=== PATIENT | female | born 2000 | race Caucasian/White ===

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

== ENCOUNTER 2019-08-02 07:51 | Inpatient (IN) ==
[2019-08-02] MEDS ORDERED: KETOROLAC 30 MG/ML VIAL IV STA (08:06)
[2019-08-02] MEDS ORDERED: ONDANSETRON INJ 2 MG/ML 2 ML VIAL IV STA (08:07)
[2019-08-02] MEDS ORDERED: SODIUM CHLORIDE 0.9% 1000ML 1,000 ML IV SCH (08:15)
[2019-08-02 08:43] LABS: Basophils # (auto) 0.04 K/uL (0-0.2); Basophils % (auto) 0.3 %; Eosinophils # (auto) 0.05 K/uL (0-0.5); Eosinophils % (auto) 0.4 %; Hematocrit (blood only) 37.4 % (37-47); Hemoglobin 12.6 g/dL (12.0-16.0); Immature Granulocytes # (auto) 0.03 K/uL (0.00-0.02); Immature Granulocytes % (auto) 0.2 %; Lymphocytes # (auto) 2.24 K/uL (1.2-3.4); Lymphocytes % (auto) 17.8 %; Mean Corpuscular Hemoglobin 28.8 pg (25-34); Mean Corpuscular Hgb Conc 33.7 g/dL (32-36); Mean Corpuscular Volume 85.6 fL (80-100); Mean Platelet Volume 10.2 fL (7.4-10.4); Monocytes # (auto) 1.74 K/uL (0.11-0.59); Monocytes % (auto) 13.8 %; Neutrophils # (auto) 8.48 K/uL (1.4-6.5); Neutrophils % (auto) 67.5 %; Platelet Count 328 K/uL (130-400); RDW Coefficient of Variation 13.7 % (11.5-14.5); RDW Standard Deviation 42.8 fL (36.4-46.3); Red Blood Count 4.37 M/uL (4.2-5.4); White Blood Count 12.58 K/uL (4.8-10.8)
[2019-08-02 09:00] LABS: Albumin Level 3.3 gm/dl (3.4-5.0); BUN Creatinine Ratio 10.1 (10-20); Calcium 8.9 mg/dl (8.5-10.1); Creatinine Clr Calc Pharmacy 93.4 ml/min; Est GFR (African American) 117.7; Est GFR (Non-African American) 101.5; Potassium 4.1 mmol/L (3.5-5.1)
[2019-08-02 09:01] LABS: Monotest Negative (Negative); Pregnancy Test, Serum Negative (Negative)
--- NOTE | 2019-08-02 09:01 | XRay Report ---
XR chest 1V portable HISTORY: 19 years-old Female Chest Pain acute atypical chest pain COMPARISON: None available TECHNIQUE: Portable AP view of the chest FINDINGS: Cardiomediastinal and hilar silhouettes are within normal limits. No pneumothorax, pleural effusion, focal airspace consolidation or overt pulmonary edema. Bones of the chest appear grossly intact. No o paque foreign body. IMPRESSION: Normal exam. ACT 112: Negative or not required by law. The above report was generated using voice recognition software. It may contain grammatical, syntax o r spelling errors. Electronically signed by: Pete Olmos M.D. 08/02/2019 9:00 AM
[2019-08-02 09:06] LABS: Influenza A virus by PCR Neg for Influ A (Neg); Influenza B virus by PCR Neg for Influ B (Neg)
[2019-08-02 09:07] LABS: Albumin Globulin Ratio 0.7 (0.9-2); Bilirubin,Total 0.1 mg/dl (0.2-1); Creatine Kinase MB 20.9 ng/ml (0.5-3.6); Globulin 4.5 gm/dl (2.5-4.0); Total Protein 7.8 gm/dl (6.4-8.2); Troponin I 4.71 ng/ml (0-0.045)
--- NOTE | 2019-08-02 09:25 | Emergency Department Note ---
ED Visit Note I saw and examined this patient separately from Dr. Gaines and discussed my findings with him. . Resident Activity Tracking Resident Involvement: Resident Care Provided Care Provided: Adult ED
--- NOTE | 2019-08-02 10:10 | History & Physical Report ---
Date of Service August 02, 2019 Assessment & Plan (1) Chest pain: - Likely related to myocarditis (see below) - CXR negative; CT PE pending completion. - Trop elevated at 4.710; will trend serial Trop levels q6hr. - Admit to telemetry for close monitoring. - Toradol 30 mg IV q6hr prn -- will aid in inflammatory related pain. (2) Myocarditis: - Presumed myocarditis in setting of recent viral illness at home. - CRP and ESR both elevated; will trend levels on 08/03/19. - EBV, Anaplasmosis and Lyme timer all pending. - U/a pending collection; BC pending. - Rapid strep & monospot negative. - Chest pain work up as noted above. - Toradol IV prn pain; Tylenol prn fevers/pain. - Consulting cardiology for evaluation. (3) Elevated troponin: - Trop 4.71; trend level q6hr. - Monitor daily EKGs. (4) Elevated CK: - CK level 237; IV fluids at 100 cc/hr. - Monitor daily levels. (5) Leukocytosis: - In setting of presumed recent viral illness. - Continue to monitor CBC daily. (6) Uses control: - Continue home med as prescribed. (7) DVT prophylaxis: - SCDs; encourage ambulation. Dispo: Med/surg with tele for chest pain evaluation. History of Present Illness Chief Complaint: Chest pain Primary Care Provider: Mulu Nicholson MD Ms. Lozano is a 19 year old female with no significant past medical history who presented with chest pain. Pt. developed generalized achiness, headaches and neck soreness starting last Thursday. She also had fevers at home but did not re cord temperature. She woke up with sternal chest pressure/pain this morning. Pain was constant and radiated to both arms. No improvement in pain with positional changes. Had associated nausea, denies vomiting, shortness of breath, abdominal pain, nasal congestion, pharyngitis, sinus pressure. She received Toradol 30 mg IV in the ER with improvement in chest pain. Denies recent ill contacts with known viral illnesses. ER course: Troponin level was elevated at 4.710. EKG was negative for acute changes. Leukocytosis, mildly elevated CK level, CRP of 10.8 and ESR 46 noted on labs. CXR negative. She received IV fluids and Toradol. Will admit for evaluation of myocarditis. Allergies Allergy/AdvReac Type Severity Reaction Status Date / Time No Known Allergies Allergy Unverified 08/02/19 08:43 Home Medications Home Medications Medication Instructions Recorded Confirmed Type norethindrone-e.estradiol-iron 1 tab PO HS 08/02/19 08/02/19 History [Travon Fe 1.5/ (28)] colchicine 0.6 mg PO DAILY #30 cap 08/04/19 Rx metoprolol succinate 25 mg PO DAILY #30 ea 08/04/19 Rx Past Med/Surg History Medical History No pertinent past medical history Surgical History S/P nasal surgery Family History Aunt Breast cancer paternal Aunt Breast cancer maternal - negative genetic testing Family/Other Breast cancer cousin Social History Preferred Language: Polish Communication Ability: Effective Manager Community Development Required: No Beliefs That Will Affect Care: None Current Living Situation: Parent current occupation: Student Feels Safe at Home: Yes Smoking Status: Never smoker Hx Alcohol Use: No Hx Substance Use: No Review of Systems Review of Systems: All systems reviewed & are unremarkable except as noted in HPI & below Constitutional: + fever, + fatigue and + weakness; no chills and no anorexia Ear, Nose, Mouth, Throat: no nasal congestion, no nasal discharge, no sinus pain/pressure and no sore throat Respiratory: no cough, no dyspnea and no dyspnea on exertion Cardiovascular: + chest pain and + radiating jaw, neck or arm pain; no palpitations and no edema Gastrointestinal: + nausea; no abdominal pain and no vomiting Musculoskeletal: + myalgia and + body aches; no back pain and no joint pain Integumentary: no non-healing lesions Physical Exam Physical Exam: General: Resting comfortably, 2 brothers present at bedside. HEENT: NC/AT; PERRLA with EOMI; [place] conjunctiva, MMM. No erythema of posterior pharynx Neck: Supple and nontender Cardiac: RRR w/o murmurs, gallops or rubs Lungs: CTA bilaterally; No rhonchi, wheezing, or rales Abdomen: Bowel normoactive X 4; Nontender to palpation Rectal: Deferred : Deferred Extremities: Warm. No edema present Neuro: No focal weakness Skin: No rash Results & Data Vital Signs (Past 12 Hours) Vital Signs Temp Pulse Resp BP Pulse Ox 08/02/19 08:30 73 20 104/66 100 08/02/19 07:54 36.5 C 79 18 114/80 100 Laboratory Results 08/02/19 08/02/19 08/02/19 Range/Units 08:20 08:06 08:06 WBC (4.8-10.8) K/uL RBC (4.2-5.4) M/uL Hgb (12.0-16.0) g/dL Hct (37-47) % MCV (80-100) fL MCH (25-34) pg MCHC (32-36) g/dL RDW Std Deviation (36.4-46.3) fL RDW Coeff of Mikey (11.5-14.5) % Plt Count (130-400) K/uL MPV (7.4-10.4) fL Immature Gran % (Auto) % Neut % (Auto) % Lymph % (Auto) % [place] % (Auto) % Eos % (Auto) % Baso % (Auto) % Immature Gran # (Auto) (0.00-0.02) K/uL Neut # (Auto) (1.4-6.5) K/uL Lymph # (Auto) (1.2-3.4) K/uL [place] # (Auto) (0.11-0.59) K/uL Eos # (Auto) (0-0.5) K/uL Baso # (Auto) (0-0.2) K/uL ESR 46 H (0-21) mm/hr Sodium (136-145) mmol/L Potassium (3.5-5.1) mmol/L Chloride (98-107) mmol/L Carbon Dioxide (21-32) mmol/L Anion Gap (3-11) BUN (7-18) mg/dl Creatinine (0.6-1.2) mg/dl Est Cr Clr Drug Dosing ml/min Est GFR ( Amer) Est GFR (Non-Af Amer) BUN/Creatinine Ratio (10-20) Glucose (70-99) mg/dl Calcium (8.5-10.1) mg/dl Total Bilirubin (0.2-1) mg/dl AST (15-37) U/L ALT (12-78) U/L Alkaline Phosphatase (45-117) U/L Total Creatine Kinase (26-192) U/L CK-MB (CK-2) (0.5-3.6) ng/ml CK/CKMB % Calc (0-3.0) Troponin I (0-0.045) ng/ml C-Reactive Protein 10.80 H (0-0.29) mg/dl Total Protein (6.4-8.2) gm/dl Albumin (3.4-5.0) gm/dl Globulin (2.5-4.0) gm/dl Albumin/Globulin Ratio (0.9-2) Lipase (73-393) U/L HCG, Qual (Negative) EBV Capsid Ag IgG Ab EBV Capsid Ag IgM Ab EBV EA Restrict+Diffuse EBV Nuclear Antigen Ab EBV Antibody Interp Monoscreen (Negative) Influenza Type A (PCR) Neg for Influ A (Neg) Influenza Type B (PCR) Neg for Influ B (Neg) 08/02/19 08/02/19 08/02/19 Range/Units 08:06 08:06 08:06 WBC (4.8-10.8) K/uL RBC (4.2-5.4) M/uL Hgb (12.0-16.0) g/dL Hct (37-47) % MCV (80-100) fL MCH (25-34) pg MCHC (32-36) g/dL RDW Std Deviation (36.4-46.3) fL RDW Coeff of Mikey (11.5-14.5) % Plt Count (130-400) K/uL MPV (7.4-10.4) fL Immature Gran % (Auto) % Neut % (Auto) % Lymph % (Auto) % [place] % (Auto) % Eos % (Auto) % Baso % (Auto) % Immature Gran # (Auto) (0.00-0.02) K/uL Neut # (Auto) (1.4-6.5) K/uL Lymph # (Auto) (1.2-3.4) K/uL [place] # (Auto) (0.11-0.59) K/uL Eos # (Auto) (0-0.5) K/uL Baso # (Auto) (0-0.2) K/uL ESR (0-21) mm/hr Sodium 137 (136-145) mmol/L Potassium 4.1 (3.5-5.1) mmol/L Chloride 106 (98-107) mmol/L Carbon Dioxide 25 (21-32) mmol/L Anion Gap 6.0 (3-11) BUN 8 (7-18) mg/dl Creatinine 0.83 (0.6-1.2) mg/dl Est Cr Clr Drug Dosing 93.4 ml/min Est GFR ( Amer) 117.7 Est GFR (Non-Af Amer) 101.5 BUN/Creatinine Ratio 10.1 (10-20) Glucose 102 H (70-99) mg/dl Calcium 8.9 (8.5-10.1) mg/dl Total Bilirubin 0.1 L (0.2-1) mg/dl AST 29 (15-37) U/L ALT 20 (12-78) U/L Alkaline Phosphatase 73 (45-117) U/L Total Creatine Kinase 237 H (26-192) U/L CK-MB (CK-2) 20.9 H (0.5-3.6) ng/ml CK/CKMB % Calc 8.8 H (0-3.0) Troponin I 4.710 H* (0-0.045) ng/ml C-Reactive Protein (0-0.29) mg/dl Total Protein 7.8 (6.4-8.2) gm/dl Albumin 3.3 L (3.4-5.0) gm/dl Globulin 4.5 H (2.5-4.0) gm/dl Albumin/Globulin Ratio 0.7 L (0.9-2) Lipase 96 (73-393) U/L HCG, Qual Negative (Negative) EBV Capsid Ag IgG Ab Pending EBV Capsid Ag IgM Ab Pending EBV EA Restrict+Diffuse Pending EBV Nuclear Antigen Ab Pending EBV Antibody Interp Pending Monoscreen Negative (Negative) Influenza Type A (PCR) (Neg) Influenza Type B (PCR) (Neg) 08/02/19 Range/Units 08:06 WBC 12.58 H (4.8-10.8) K/uL RBC 4.37 (4.2-5.4) M/uL Hgb 12.6 (12.0-16.0) g/dL Hct 37.4 (37-47) % MCV 85.6 (80-100) fL MCH 28.8 (25-34) pg MCHC 33.7 (32-36) g/dL RDW Std Deviation 42.8 (36.4-46.3) fL RDW Coeff of Mikey 13.7 (11.5-14.5) % Plt Count 328 (130-400) K/uL MPV 10.2 (7.4-10.4) fL Immature Gran % (Auto) 0.2 % Neut % (Auto) 67.5 % Lymph % (Auto) 17.8 % [place] % (Auto) 13.8 % Eos % (Auto) 0.4 % Baso % (Auto) 0.3 % Immature Gran # (Auto) 0.03 H (0.00-0.02) K/uL Neut # (Auto) 8.48 H (1.4-6.5) K/uL Lymph # (Auto) 2.24 (1.2-3.4) K/uL [place] # (Auto) 1.74 H (0.11-0.59) K/uL Eos # (Auto) 0.05 (0-0.5) K/uL Baso # (Auto) 0.04 (0-0.2) K/uL ESR (0-21) mm/hr Sodium (136-145) mmol/L Potassium (3.5-5.1) mmol/L Chloride (98-107) mmol/L Carbon Dioxide (21-32) mmol/L Anion Gap (3-11) BUN (7-18) mg/dl Creatinine (0.6-1.2) mg/dl Est Cr Clr Drug Dosing ml/min Est GFR ( Amer) Est GFR (Non-Af Amer) BUN/Creatinine Ratio (10-20) Glucose (70-99) mg/dl Calcium (8.5-10.1) mg/dl Total Bilirubin (0.2-1) mg/dl AST (15-37) U/L ALT (12-78) U/L Alkaline Phosphatase (45-117) U/L Total Creatine Kinase (26-192) U/L CK-MB (CK-2) (0.5-3.6) ng/ml CK/CKMB % Calc (0-3.0) Troponin I (0-0.045) ng/ml C-Reactive Protein (0-0.29) mg/dl Total Protein (6.4-8.2) gm/dl Albumin (3.4-5.0) gm/dl Globulin (2.5-4.0) gm/dl Albumin/Globulin Ratio (0.9-2) Lipase (73-393) U/L HCG, Qual (Negative) EBV Capsid Ag IgG Ab EBV Capsid Ag IgM Ab EBV EA Restrict+Diffuse EBV Nuclear Antigen Ab EBV Antibody Interp Monoscreen (Negative) Influenza Type A (PCR) (Neg) Influenza Type B (PCR) (Neg) Code Status & VTE Plan Code Status FULL CODE VTE Prophylaxis Plan VTE Prophylaxis will be ordered: Yes Supervising Physician Co-Signing Physician Notes During my face to face encounter with the patient, I obtained a physical exa mination and history. I reviwed above note and discussed plan with APC, Monika Lawson. Patient will be admitted with myocarditis as she has fever, chest pain, and elevated troponin. Will be admitted and monitored for arrhythmia. Will discuss case with cardiology. PG Care Time/CCT Total # of Minutes Spent Total Time Spent with Patient: Total time spent is greater than 50% in coordination of care (as documented) at patient's floor/unit and/or counseling patient: Coding Level of Care Code 78441 OBS Care - Level 3 Diagnoses Chest pain R07.9 Myocarditis I51.4 Elevated troponin R79.89 Elevated CK R74.8 Leukocytosis D72.829 Uses control Z78.9 DVT prophylaxis Z29.9
[2019-08-02] MEDS ORDERED: OPTIRAY 320 125ml IV PRN (10:12)
--- NOTE | 2019-08-02 10:32 | CT Scan Report ---
CT ANGIOGRAPHY OF THE CHEST, PULMONARY EMBOLUS PROTOCOL CLINICAL HISTORY: Chest pain and fever. Evaluate for pulmonary embolus. COMPARISON STUDY: Chest radiograph August 02, 2019. TECHNIQUE: Following IV administration of 119 mL of Optiray-320, helical axial images of the chest we re obtained utilizing the pulmonary embolus protocol. Maximal intensity projections and sagittal and coronal reformats were viewed on an independent 3D workstation. IV contrast was administered withou t complication. Automated exposure control was utilized for the study. A dose lowering technique wa s utilized adhering to the principles of ALARA. CT DOSE: 218.69 mGy.cm FINDINGS: No pulmonary emboli are identified. There is no thoracic aortic dissection. The size of th e heart is normal. There is no pericardial effusion. No enlarged axillary, mediastinal or hilar lymph nodes are present. The central airways are patent. There is no consolidation to suggest pneumonia. A 4 mm right upper lobe nodule with central calcification is likely benign. Bony thorax is unremarkabl e. Upper abdomen is unremarkable. IMPRESSION: 1. No pulmonary emboli identified. 2. No acute findings within the chest. 3. 4 mm right upper lobe nodule with central calcification. This is likely benign. A chest CT in one year to ensure stability is recommended. ACT 112: Negative or not required by law. Electronically signed by: Simeon Jama M.D. 08/02/2019 10:30 AM
[2019-08-02] MEDS ORDERED: ACETAMINOPHEN 325 MG TAB PO PRN (12:24)
[2019-08-02] MEDS ORDERED: ONDANSETRON INJ 2 MG/ML 2 ML VIAL IV PRN (12:24)
[2019-08-02] MEDS ORDERED: KETOROLAC 30 MG/ML VIAL IV PRN (12:24)
[2019-08-02] MEDS: SODIUM CHLORIDE 0.9% 1000ML 1,000 ML IV SCH ×2 (13:15→23:45)
--- NOTE | 2019-08-02 14:41 | Emergency Department Note ---
Entered by Pebbles Merrill acting as a scribe for Dallas Gaines MD History of Present Illness General Chief complaint: Fever Stated complaint: CHEST PAIN,FEVER Time Seen by Provider: 08/02/19 07:57 Source: patient History of Present Illness Onset (ago): hour(s) 2 Location: chest Radiation: non-radiation Pain Consistency: + other (persistent) Maximum Pain Intensity: 3 Quality: + other (pressure) Relieved By: + medication (Advil) Associated symptoms: + chest pain, + headaches and + other (neck pain, body ache); no nausea/vomiting Treatments prior to arrival: other (Advil) The patient is a 19 year old female presenting to the Emergency Department complaining of persistent chest pain starting 2 hours ago. The patient reports that she began to experienced non-radiating chest pain this morning. She describes this pain as a pressure. The reports that she has neck pain that started about 4 days ago. She states that her neck seems like it is swollen. She explains that she has been experiencing body aches. She notes that she has been experiencing intermittent headaches that worsen when she stands up to fast or moves her head from side to side. She adds that she took Advil SERVICE OFFICER at 0430 that improved her neck pain and headache. The patient reports that she hasnt received a flu shot this season. She states that she finished her menstrual period 1 week ago. She notes that she has no pertinent past medical history aside from a nose surgery. The patient denies nausea, vomiting and history of mononucleosis. Home Medications Home Medications Medication Instructions Recorded Confirmed Type ibuprofen [Advil] 200 mg PO Q6H PRN 08/02/19 08/02/19 History norethindrone-e.estradiol-iron 1 tab PO HS 08/02/19 08/02/19 History [Travon Fe 1.5/30 (28)] Allergies Allergy/AdvReac Type Severity Reaction Status Date / Time No Known Allergies Allergy Unverified 08/02/19 08:43 Past Med/Surg History Medical History No pertinent past medical history Surgical History S/P nasal surgery Family History Aunt Breast cancer paternal Aunt Breast cancer maternal - negative genetic testing Family/Other Breast cancer cousin Social History Preferred Language: Singaporean Communication Ability: Effective Asbestos Worker Helper Required: No Beliefs That Will Affect Care: None Current Living Situation: Parent current occupation: Student Other Information That Helps Us Care for You: No Feels Safe at Home: Yes Safety Concerns: Feels Safe At This Time Smoking Status: Never smoker Hx Alcohol Use: No Hx Substance Use: No Review of Systems See HPI for pertinent positives & negatives. and A total of 10 systems reviewed and were otherwise negative Physical Exam Vital Signs Vital Signs - 24 hr 08/03/19 12:34 Temperature 36.7 C Temperature Source Oral Pulse Rate [Left Finger] 53 L Respiratory Rate 18 Blood Pressure [Left Arm] 123/80 Blood Pressure Mean [Left Arm] 94 Pulse Oximetry 99 Oxygen Delivery Method Room Air GENERAL: Awake, alert, well-appearing, in no acute distress HENT: Normocephalic, atraumatic. Oropharynx unremarkable. EYES: Normal conjunctiva. Sclera non-icteric. NECK: Supple. No nuchal rigidity. FROM. No JVD. RESPIRATORY: Clear to auscultation. CARDIAC: Regular rate, normal rhythm. Extremities warm and well perfused. Pulses equal. ABDOMEN: Soft, non-distended. No tenderness to palpation. No rebound or guarding. No masses. RECTAL: Deferred. MUSCULOSKELETAL: Chest examination reveals no tenderness. The back is symmetrical on inspection without obvious abnormality. There is no CVA tenderness to palpation. No joint edema. LOWER EXTREMITIES: Calves are equal size bilaterally and non-tender. No edema. No discoloration. NEURO: Normal sensorium. No sensory or motor deficits noted. SKIN: No rash or jaundice noted. Course Course 0758: The patient was evaluated in room B10, and a complete history and physical examination were performed. 09: I discussed the patients case with Dr. Dannielle ANDERSON waterside worker. He agrees with the plan to consult the hospitalist team. 920: I discussed the patients case with Dr. Kristen ANDERSON hospitalist. He will evaluate the patient for further management. 0930: I updated the patient at this time. Administered Medications Colchicine (Colcrys) 0.6 mg PO BID FEROZ Stop: 09/02/19 08:59 Last Admin: 08/03/19 20:26 Dose: 0.6 mg Documented by: [id number] Admin: 08/03/19 09:38 Dose: 0.6 mg Documented by: [id number] Ioversol (Optiray 320 125ml) 119 ml IV ONCE PRN PRN Reason: Interaction Checking Stop: 08/06/19 10:11 Last Admin: 08/02/19 10:13 Dose: 119 ml Documented by: [id number] Ketorolac Tromethamine (Toradol) 30 mg IV Q6H PRN PRN Reason: Pain Stop: 08/07/19 12:23 Last Admin: 08/02/19 16:13 Dose: 30 mg Documented by: [id number] Metoprolol Tartrate (Lopressor) 12.5 mg PO BID FEROZ Stop: 09/01/19 20:59 Last Admin: 08/03/19 20:25 Dose: 12.5 mg Documented by: [id number] Admin: 08/03/19 08:16 Dose: 12.5 mg Documented by: [id number] Admin: 08/02/19 20:34 Dose: 12.5 mg Documented by: [id number] Miscellaneous (Patient's Own Oral Contraceptive) 1 ea PO HS FEROZ Stop: 09/01/19 20:59 Last Admin: 08/03/19 20:25 Dose: 1 ea Documented by: [id number] Admin: 08/02/19 22:22 Dose: Not Given Documented by: [id number] Discontinued Medications Colchicine (Colcrys) 0.6 mg PO NOW STA Stop: 08/02/19 17:50 Last Admin: 08/02/19 20:34 Dose: 0.6 mg Documented by: [id number] Sodium Chloride (Nss 1000ml) 1,000 mls @ 999 mls/hr IV .Q1H1M FEROZ Stop: 08/02/19 09:15 Last Infusion: 08/02/19 09:59 Dose: 0 mls/hr Documented by: [id number] Admin: 08/02/19 08:28 Dose: 999 mls/hr Documented by: [id number] Sodium Chloride (Nss 1000ml) 1,000 mls @ 100 mls/hr IV .Q10H FEROZ Stop: 08/03/19 09:14 Last Infusion: 08/03/19 09:45 Dose: 0 mls/hr Documented by: [id number] Admin: 08/02/19 23:45 Dose: 100 mls/hr Documented by: [id number] Infusion: 08/02/19 23:15 Dose: 100 mls/hr Documented by: [id number] Admin: 08/02/19 13:15 Dose: 100 mls/hr Documented by: [id number] Ketorolac Tromethamine (Toradol) 30 mg IV NOW STA Stop: 08/02/19 08:07 Last Admin: 08/02/19 08:29 Dose: 30 mg Documented by: [id number] Miscellaneous (Order Awaiting Action) 1 ea N/A QS FEROZ Stop: 09/01/19 15:59 Last Admin: 08/02/19 16:13 Dose: Not Given Documented by: [id number] Ondansetron HCl (Zofran) 4 mg IV NOW STA Stop: 08/02/19 08:08 Last Admin: 08/02/19 08:29 Dose: 4 mg Documented by: [id number] Medical Decision Making Differential Diagnosis Differential diagnosis: Etiologies such as viral syndrome, otitis, pharyngitis, pneumonia, influenza, meningitis, urinary tract infection, sepsis, bacteremia, as well as others were entertained. Medical Records Attestation: I reviewed the patient's medical records. Home Medications Current Medication List: was personally reviewed by me Laboratory Data Attestation: I reviewed the patient's lab results. Result diagrams: 08/03/19 01:46 08/03/19 01:46 Lab Results 08/02/19 08/02/19 08/02/19 Range/Units 08:06 08:06 08:06 WBC 12.58 H (4.8-10.8) K/uL RBC 4.37 (4.2-5.4) M/uL Hgb 12.6 (12.0-16.0) g/dL Hct 37.4 (37-47) % MCV 85.6 (80-100) fL MCH 28.8 (25-34) pg MCHC 33.7 (32-36) g/dL RDW Std Deviation 42.8 (36.4-46.3) fL RDW Coeff of Mikey 13.7 (11.5-14.5) % Plt Count 328 (130-400) K/uL MPV 10.2 (7.4-10.4) fL Immature Gran % (Auto) 0.2 % Neut % (Auto) 67.5 % Lymph % (Auto) 17.8 % Logan % (Auto) 13.8 % Eos % (Auto) 0.4 % Baso % (Auto) 0.3 % Immature Gran # (Auto) 0.03 H (0.00-0.02) K/uL Neut # (Auto) 8.48 H (1.4-6.5) K/uL Lymph # (Auto) 2.24 (1.2-3.4) K/uL Logan # (Auto) 1.74 H (0.11-0.59) K/uL Eos # (Auto) 0.05 (0-0.5) K/uL Baso # (Auto) 0.04 (0-0.2) K/uL ESR (0-21) mm/hr Sodium 137 (136-145) mmol/L Potassium 4.1 (3.5-5.1) mmol/L Chloride 106 (98-107) mmol/L Carbon Dioxide 25 (21-32) mmol/L Anion Gap 6.0 (3-11) BUN 8 (7-18) mg/dl Creatinine 0.83 (0.6-1.2) mg/dl Est Cr Clr Drug Dosing 93.4 ml/min Est GFR ( Amer) 117.7 Est GFR (Non-Af Amer) 101.5 BUN/Creatinine Ratio 10.1 (10-20) Glucose 102 H (70-99) mg/dl Calcium 8.9 (8.5-10.1) mg/dl Total Bilirubin 0.1 L (0.2-1) mg/dl AST 29 (15-37) U/L ALT 20 (12-78) U/L Alkaline Phosphatase 73 (45-117) U/L Total Creatine Kinase 237 H (26-192) U/L CK-MB (CK-2) 20.9 H (0.5-3.6) ng/ml CK/CKMB % Calc 8.8 H (0-3.0) Troponin I 4.710 H* (0-0.045) ng/ml C-Reactive Protein (0-0.29) mg/dl Total Protein 7.8 (6.4-8.2) gm/dl Albumin 3.3 L (3.4-5.0) gm/dl Globulin 4.5 H (2.5-4.0) gm/dl Albumin/Globulin Ratio 0.7 L (0.9-2) Lipase 96 (73-393) U/L HCG, Qual Negative (Negative) Urine Color Urine Appearance (Clear) Urine pH (4.5-7.5) Ur Specific Prospect (1.000-1.030) Urine Protein (Negative) Urine Glucose (UA) (Negative) Urine Ketones (Negative) Urine Blood (Negative) Urine Nitrite (Negative) Urine Bilirubin (Negative) Urine Urobilinogen (Negative) Ur Leukocyte Esterase (Negative) Lyme Disease IgG Ab (Negative) Lyme Disease IgM Ab (Negative) EBV Capsid Ag IgG Ab U/mL EBV Capsid Ag IgM Ab U/mL EBV EA Restrict+Diffuse U/mL EBV Nuclear Antigen Ab U/mL EBV Antibody Interp Monoscreen Negative (Negative) Influenza Type A (PCR) (Neg) Influenza Type B (PCR) (Neg) 08/02/19 08/02/19 08/02/19 Range/Units 08:06 08:06 08:06 WBC (4.8-10.8) K/uL RBC (4.2-5.4) M/uL Hgb (12.0-16.0) g/dL Hct (37-47) % MCV (80-100) fL MCH (25-34) pg MCHC (32-36) g/dL RDW Std Deviation (36.4-46.3) fL RDW Coeff of Mikey (11.5-14.5) % Plt Count (130-400) K/uL MPV (7.4-10.4) fL Immature Gran % (Auto) % Neut % (Auto) % Lymph % (Auto) % Logan % (Auto) % Eos % (Auto) % Baso % (Auto) % Immature Gran # (Auto) (0.00-0.02) K/uL Neut # (Auto) (1.4-6.5) K/uL Lymph # (Auto) (1.2-3.4) K/uL Logan # (Auto) (0.11-0.59) K/uL Eos # (Auto) (0-0.5) K/uL Baso # (Auto) (0-0.2) K/uL ESR 46 H (0-21) mm/hr Sodium (136-145) mmol/L Potassium (3.5-5.1) mmol/L Chloride (98-107) mmol/L Carbon Dioxide (21-32) mmol/L Anion Gap (3-11) BUN (7-18) mg/dl Creatinine (0.6-1.2) mg/dl Est Cr Clr Drug Dosing ml/min Est GFR ( Amer) Est GFR (Non-Af Amer) BUN/Creatinine Ratio (10-20) Glucose (70-99) mg/dl Calcium (8.5-10.1) mg/dl Total Bilirubin (0.2-1) mg/dl AST (15-37) U/L ALT (12-78) U/L Alkaline Phosphatase (45-117) U/L Total Creatine Kinase (26-192) U/L CK-MB (CK-2) (0.5-3.6) ng/ml CK/CKMB % Calc (0-3.0) Troponin I (0-0.045) ng/ml C-Reactive Protein 10.80 H (0-0.29) mg/dl Total Protein (6.4-8.2) gm/dl Albumin (3.4-5.0) gm/dl Globulin (2.5-4.0) gm/dl Albumin/Globulin Ratio (0.9-2) Lipase (73-393) U/L HCG, Qual (Negative) Urine Color Urine Appearance (Clear) Urine pH (4.5-7.5) Ur Specific Prospect (1.000-1.030) Urine Protein (Negative) Urine Glucose (UA) (Negative) Urine Ketones (Negative) Urine Blood (Negative) Urine Nitrite (Negative) Urine Bilirubin (Negative) Urine Urobilinogen (Negative) Ur Leukocyte Esterase (Negative) Lyme Disease IgG Ab (Negative) Lyme Disease IgM Ab (Negative) EBV Capsid Ag IgG Ab 401.00 H U/mL EBV Capsid Ag IgM Ab <36.00 U/mL EBV EA Restrict+Diffuse 17.30 H U/mL EBV Nuclear Antigen Ab 540.00 H U/mL EBV Antibody Interp SEE NOTE Monoscreen (Negative) Influenza Type A (PCR) (Neg) Influenza Type B (PCR) (Neg) 01/28/20 01/28/20 01/28/20 Range/Units 08:20 13:44 13:44 WBC (4.8-10.8) K/uL RBC (4.2-5.4) M/uL Hgb (12.0-16.0) g/dL Hct (37-47) % MCV (80-100) fL MCH (25-34) pg MCHC (32-36) g/dL RDW Std Deviation (36.4-46.3) fL RDW Coeff of Mikey (11.5-14.5) % Plt Count (130-400) K/uL MPV (7.4-10.4) fL Immature Gran % (Auto) % Neut % (Auto) % Lymph % (Auto) % Logan % (Auto) % Eos % (Auto) % Baso % (Auto) % Immature Gran # (Auto) (0.00-0.02) K/uL Neut # (Auto) (1.4-6.5) K/uL Lymph # (Auto) (1.2-3.4) K/uL Logan # (Auto) (0.11-0.59) K/uL Eos # (Auto) (0-0.5) K/uL Baso # (Auto) (0-0.2) K/uL ESR (0-21) mm/hr Sodium (136-145) mmol/L Potassium (3.5-5.1) mmol/L Chloride (98-107) mmol/L Carbon Dioxide (21-32) mmol/L Anion Gap (3-11) BUN (7-18) mg/dl Creatinine (0.6-1.2) mg/dl Est Cr Clr Drug Dosing ml/min Est GFR ( Amer) Est GFR (Non-Af Amer) BUN/Creatinine Ratio (10-20) Glucose (70-99) mg/dl Calcium (8.5-10.1) mg/dl Total Bilirubin (0.2-1) mg/dl AST (15-37) U/L ALT (12-78) U/L Alkaline Phosphatase (45-117) U/L Total Creatine Kinase (26-192) U/L CK-MB (CK-2) (0.5-3.6) ng/ml CK/CKMB % Calc (0-3.0) Troponin I 6.640 H* (0-0.045) ng/ml C-Reactive Protein (0-0.29) mg/dl Total Protein (6.4-8.2) gm/dl Albumin (3.4-5.0) gm/dl Globulin (2.5-4.0) gm/dl Albumin/Globulin Ratio (0.9-2) Lipase (73-393) U/L HCG, Qual (Negative) Urine Color Urine Appearance (Clear) Urine pH (4.5-7.5) Ur Specific Prospect (1.000-1.030) Urine Protein (Negative) Urine Glucose (UA) (Negative) Urine Ketones (Negative) Urine Blood (Negative) Urine Nitrite (Negative) Urine Bilirubin (Negative) Urine Urobilinogen (Negative) Ur Leukocyte Esterase (Negative) Lyme Disease IgG Ab Negative (Negative) Lyme Disease IgM Ab Negative (Negative) EBV Capsid Ag IgG Ab U/mL EBV Capsid Ag IgM Ab U/mL EBV EA Restrict+Diffuse U/mL EBV Nuclear Antigen Ab U/mL EBV Antibody Interp Monoscreen (Negative) Influenza Type A (PCR) Neg for Influ A (Neg) Influenza Type B (PCR) Neg for Influ B (Neg) 08/02/19 08/02/19 08/03/19 Range/Units 16:50 19:39 01:46 WBC (4.8-10.8) K/uL RBC (4.2-5.4) M/uL Hgb (12.0-16.0) g/dL Hct (37-47) % MCV (80-100) fL MCH (25-34) pg MCHC (32-36) g/dL RDW Std Deviation (36.4-46.3) fL RDW Coeff of Mikey (11.5-14.5) % Plt Count (130-400) K/uL MPV (7.4-10.4) fL Immature Gran % (Auto) % Neut % (Auto) % Lymph % (Auto) % Logan % (Auto) % Eos % (Auto) % Baso % (Auto) % Immature Gran # (Auto) (0.00-0.02) K/uL Neut # (Auto) (1.4-6.5) K/uL Lymph # (Auto) (1.2-3.4) K/uL Logan # (Auto) (0.11-0.59) K/uL Eos # (Auto) (0-0.5) K/uL Baso # (Auto) (0-0.2) K/uL ESR (0-21) mm/hr Sodium 140 (136-145) mmol/L Potassium 4.7 (3.5-5.1) mmol/L Chloride 112 H (98-107) mmol/L Carbon Dioxide 26 (21-32) mmol/L Anion Gap 2.0 L (3-11) BUN 9 (7-18) mg/dl Creatinine 0.85 (0.6-1.2) mg/dl Est Cr Clr Drug Dosing 91.2 ml/min Est GFR ( Amer) 114.3 Est GFR (Non-Af Amer) 98.6 BUN/Creatinine Ratio 10.4 (10-20) Glucose 88 (70-99) mg/dl Calcium 8.2 L (8.5-10.1) mg/dl Total Bilirubin (0.2-1) mg/dl AST (15-37) U/L ALT (12-78) U/L Alkaline Phosphatase (45-117) U/L Total Creatine Kinase 546 H (26-192) U/L CK-MB (CK-2) (0.5-3.6) ng/ml CK/CKMB % Calc (0-3.0) Troponin I 12.200 H* 11.300 H* (0-0.045) ng/ml C-Reactive Protein 6.46 H (0-0.29) mg/dl Total Protein (6.4-8.2) gm/dl Albumin (3.4-5.0) gm/dl Globulin (2.5-4.0) gm/dl Albumin/Globulin Ratio (0.9-2) Lipase (73-393) U/L HCG, Qual (Negative) Urine Color Yellow Urine Appearance Clear (Clear) Urine pH 8.0 H (4.5-7.5) Ur Specific Prospect 1.044 H (1.000-1.030) Urine Protein Negative (Negative) Urine Glucose (UA) Negative (Negative) Urine Ketones Negative (Negative) Urine Blood Negative (Negative) Urine Nitrite Negative (Negative) Urine Bilirubin Negative (Negative) Urine Urobilinogen Negative (Negative) Ur Leukocyte Esterase Negative (Negative) Lyme Disease IgG Ab (Negative) Lyme Disease IgM Ab (Negative) EBV Capsid Ag IgG Ab U/mL EBV Capsid Ag IgM Ab U/mL EBV EA Restrict+Diffuse U/mL EBV Nuclear Antigen Ab U/mL EBV Antibody Interp Monoscreen (Negative) Influenza Type A (PCR) (Neg) Influenza Type B (PCR) (Neg) 08/03/19 08/03/19 Range/Units 01:46 01:46 WBC 9.90 (4.8-10.8) K/uL RBC 3.75 L (4.2-5.4) M/uL Hgb 10.8 L (12.0-16.0) g/dL Hct 32.8 L (37-47) % MCV 87.5 (80-100) fL MCH 28.8 (25-34) pg MCHC 32.9 (32-36) g/dL RDW Std Deviation 44.2 (36.4-46.3) fL RDW Coeff of Mikey 13.7 (11.5-14.5) % Plt Count 316 (130-400) K/uL MPV 9.8 (7.4-10.4) fL Immature Gran % (Auto) % Neut % (Auto) % Lymph % (Auto) % Logan % (Auto) % Eos % (Auto) % Baso % (Auto) % Immature Gran # (Auto) (0.00-0.02) K/uL Neut # (Auto) (1.4-6.5) K/uL Lymph # (Auto) (1.2-3.4) K/uL Logan # (Auto) (0.11-0.59) K/uL Eos # (Auto) (0-0.5) K/uL Baso # (Auto) (0-0.2) K/uL ESR 42 H (0-21) mm/hr Sodium (136-145) mmol/L Potassium (3.5-5.1) mmol/L Chloride (98-107) mmol/L Carbon Dioxide (21-32) mmol/L Anion Gap (3-11) BUN (7-18) mg/dl Creatinine (0.6-1.2) mg/dl Est Cr Clr Drug Dosing ml/min Est GFR ( Amer) Est GFR (Non-Af Amer) BUN/Creatinine Ratio (10-20) Glucose (70-99) mg/dl Calcium (8.5-10.1) mg/dl Total Bilirubin (0.2-1) mg/dl AST (15-37) U/L ALT (12-78) U/L Alkaline Phosphatase (45-117) U/L Total Creatine Kinase (26-192) U/L CK-MB (CK-2) (0.5-3.6) ng/ml CK/CKMB % Calc (0-3.0) Troponin I (0-0.045) ng/ml C-Reactive Protein (0-0.29) mg/dl Total Protein (6.4-8.2) gm/dl Albumin (3.4-5.0) gm/dl Globulin (2.5-4.0) gm/dl Albumin/Globulin Ratio (0.9-2) Lipase (73-393) U/L HCG, Qual (Negative) Urine Color Urine Appearance (Clear) Urine pH (4.5-7.5) Ur Specific Prospect (1.000-1.030) Urine Protein (Negative) Urine Glucose (UA) (Negative) Urine Ketones (Negative) Urine Blood (Negative) Urine Nitrite (Negative) Urine Bilirubin (Negative) Urine Urobilinogen (Negative) Ur Leukocyte Esterase (Negative) Lyme Disease IgG Ab (Negative) Lyme Disease IgM Ab (Negative) EBV Capsid Ag IgG Ab U/mL EBV Capsid Ag IgM Ab U/mL EBV EA Restrict+Diffuse U/mL EBV Nuclear Antigen Ab U/mL EBV Antibody Interp Monoscreen (Negative) Influenza Type A (PCR) (Neg) Influenza Type B (PCR) (Neg) Imaging Data Radiologist's Impression: Radiology results as stated below per my review and the radiologist's interpretation: CT ANGIOGRAPHY OF THE CHEST, PULMONARY EMBOLUS PROTOCOL CLINICAL HISTORY: Chest pain and fever. Evaluate for pulmonary embolus. COMPARISON STUDY: Chest radiograph August 02, 2019. TECHNIQUE: Following IV administration of 119 mL of Optiray-320, helical axial images of the chest were obtained utilizing the pulmonary embolus protocol. Maximal intensity projections and sagittal and coronal reformats were viewed on an independent 3D workstation. IV contrast was administered without complication. Automated exposure control was utilized for the study. A dose lowering technique was utilized adhering to the principles of ALARA. CT DOSE: 218.69 mGy.cm FINDINGS: No pulmonary emboli are identified. There is no thoracic aortic dissection. The size of the heart is normal. There is no pericardial effusion. No enlarged axillary, mediastinal or hilar lymph nodes are present. The central airways are patent. There is no consolidation to suggest pneumonia. A 4 mm right upper lobe nodule with central calcification is likely benign. Bony thorax is unremarkable. Upper abdomen is unremarkable. IMPRESSION: 1. No pulmonary emboli identified. 2. No acute findings within the chest. 3. 4 mm right upper lobe nodule with central calcification. This is likely benign. A chest CT in one year to ensure stability is recommended. ACT 112: Negative or not required by law. Electronically signed by: Simeon Jama M.D. 08/02/2019 10:30 AM XR chest 1V portable HISTORY: 19 years-old Female Chest Pain acute atypical chest pain COMPARISON: None available TECHNIQUE: Portable AP view of the chest FINDINGS: Cardiomediastinal and hilar silhouettes are within normal limits. No pneumothorax, pleural effusion, focal airspace consolidation or overt pulmonary edema. Bones of the chest appear grossly intact. No opaque foreign body. IMPRESSION: Normal exam. ACT 112: Negative or not required by law. The above report was generated using voice recognition software. It may contain grammatical, syntax or spelling errors. Electronically signed by: Pete Olmos M.D. 08/02/2019 9:00 AM ECG Data Attestation: I personally reviewed and interpreted this ECG as follows: Indication: + chest pain Rate (beats per minute): 74 Rhythm: + normal sinus ECG Intervals/blocks: + Normal QT-c (QT-c 406.) ECG ST segments: no ST depression and no ST elevation ECG Findings: no PACs and no PVCs Blood Pressure Blood Pressure Findings: Normal blood pressure Blood Pressure Disposition: further management by hospitalist RACHAEL Narrative This is a 19-year-old female who presents emergency department complaining of chest pain. The patient has been sick for the past week or so with upper respiratory-like symptoms. Using shared medical decision making with the patient decision was made to obtain EKG as well as cardiac enzymes and a chest x-ray. I did attempt to contact this patient's parents without success. They are down in [place]. Patient's laboratory work is concerning for an elevated troponin. Based on this I did discuss the case with cardiology. We both decided to have the patient admitted to the medicine service as well as to have the patient sent for CAT scan of the chest. Patient was in agreement with the treatment plan. Patient was given Toradol for her pain. Repeat examination revealed improvement the patient's symptoms. Impression & Plan Chest pain, Elevated troponin Discharge Plan Visit Data *Final* Discharge Date/Time: 08/02/19 11:53 Chief Complaint: Fever Stated Complaint: CHEST PAIN,FEVER ED Provider: Dallas Gaines ED Midlevel Provider: Vangie Irene Discharge Problem: Chest pain, Elevated troponin Patient Disposition: Admitted As Inpatient Discharge Instructions Interventions: ED Discharge Assessment Last Done: 08/02/19 11:53 Discharge Problem: Chest pain Qualifiers: Chest pain type: unspecified Qualified Code(s): R07.9 - Chest pain, unspecified The scribe's documentation has been prepared under my direction and personally reviewed by me in its entirety. I confirm that the note above accurately reflects all work, treatment, procedures, and medical decision making performed by me.
[2019-08-02 15:02] LABS: Lyme Ab IgG w/WB Rflx Negative (Negative); Lyme Ab IgM w/WB Rflx Negative (Negative)
--- NOTE | 2019-08-02 16:23 | XCELERA ---
[id number] \\[email or web address]\[id number]
[2019-08-02 17:00] LABS: Appearance Urine Clear (Clear); Bilirubin Urine Negative (Negative); Blood Urine Negative (Negative); Color Urine Yellow; Glucose Urine UA Negative (Negative); Ketones Urine Negative (Negative); Leukocyte Esterase Urine Negative (Negative); Nitrite Urine Negative (Negative); Protein Urine Negative (Negative); Specific Gravity Urine 1.044 (1.000-1.030); Urobilinogen Urine Negative (Negative)
--- NOTE | 2019-08-02 17:47 | Cardiology Consultation ---
Date of Consultation August 02, 2019 Assessment & Plan (1) Myopericarditis: Her symptoms are consistent with a pericarditis based primarily on the acute onset of the symptoms and associated pleuritic findings. She does not have EKG findings of active or acute pericarditis. Her biomarkers are elevated suggesting myocardial involvement. There is also wall motion abnormality on her echocardiogram. He the time of the interview she had been symptom free. I think the likelihood that her biomarker elevation was related to an acute coronary syndrome, dissection or embolic event is exceedingly low. I do not believe she requires coronary angiography as result. There is some concern regarding continued use of nonsteroidals in the setting of myocardial involvement. I think she will need to be monitored closely overnight for the development of a arrhythmias. No evidence of heart failure. No dilation of the ventricle. I think we will try and limit the use of nonsteroidals. She can be treated with colchicine and given her regional wall motion abnormalities will try low-dose beta-blockade as well. She will require an activity restriction when discharged. History of Present Illness Reason for Consultation: Chest pain Requesting Physician: Kristen Attending Physician: Cristofer Peterson History of Present Illness The patient is a 19-year-old woman without any significant cardiac history who developed the relatively acute onset of chest discomfort early this morning. Patient states she was awakened from sleep with symptoms of nausea and some gastrointestinal upset. This eventually led to symptoms of chest pressure. This chest pressure was precordial in nature and also involve both arms. There was no other radiation. Did not produce significant breathing difficulty. There may been a mild pleuritic component and perhaps improvement in symptoms with sitting upright. Based on the nature of the symptoms she sought medical attention was noted to have elevated cardiac biomarkers upon presentation to the emergency room. She was administered Toradol with relief of her symptoms. Patient states that for several days she has been experiencing fevers and chills. The seem to have resolved yesterday but then she began experience these new symptoms. She had some neck fullness in stiffness in her neck as well. This did produce a sense of dizziness when turning from side to side but no symptoms of significant palpitations, presyncope or syncope. No significant coughing. No orthopnea. She cannot recall any close contacts with similar symptoms. Throughout most of the afternoon the patient was symptom free. She has not had a recurrence of her chest pain until shortly prior to this interview where she began experience some mild discomfort. She was just administered another dose of Toradol. Allergies Allergy/AdvReac Type Severity Reaction Status Date / Time No Known Allergies Allergy Unverified 08/02/19 08:43 Home Medications Home Medications Medication Instructions Recorded Confirmed Type ibuprofen [Advil] 200 mg PO Q6H PRN 08/02/19 08/02/19 History norethindrone-e.estradiol-iron 1 tab PO HS 08/02/19 08/02/19 History [Travon Fe 1.5/30 ()] Patient History Medical History No pertinent past medical history Surgical History S/P nasal surgery Family History Aunt Breast cancer paternal Aunt Breast cancer maternal - negative genetic testing Family/Other Breast cancer cousin Social History Preferred Language: Greenlandic Communication Ability: Effective Ciaio Lumite Injector Required: No Beliefs That Will Affect Care: None Current Living Situation: Parent current occupation: Student Other Information That Helps Us Care for You: No Feels Safe at Home: Yes Safety Concerns: Feels Safe At This Time Smoking Status: Never smoker Hx Alcohol Use: No Hx Substance Use: No Review of Systems Review of Systems: All systems reviewed & are unremarkable except as noted in HPI & below Physical Exam Physical Exam: She is alert and oriented x3. Mood affect appear normal. She answered all questions appropriately. HEENT: Sclerae are anicteric. Pupils are equal and reactive to light and accommodation. Extraocular movements were intact. Neuro: Cranial nerves intact Neck: Examination of the submandibular region did not reveal any significant lymphadenopathy. Carotids are palpable bilaterally and free of bruits on auscultation. There was no evidence of jugular venous distention. The thyroid was not enlarged. Lungs: Lungs are clear to auscultation bilaterally. There are no rales wheezes or rhonchi. She has normal respiratory effort without use of accessory muscles. There is normal pulmonary excursion. Cardiac: The rhythm was regular. S1 and S2 were normal. There are no murmurs on examination. The PMI was not markedly displaced on palpation. Abdomen: The abdomen was soft and nontender. Extremities: Patient has bilateral radial pulses that are equal in intensity. There is no evidence cyanosis or clubbing. There was no evidence of significant peripheral edema bilaterally. Skin: There are no rashes noted on examination today. Results & Data Vital Signs (Past 12 Hours) Vital Signs Temp Pulse Pulse Resp BP BP Pulse Ox 08/02/19 15:32 36.7 C 72 18 126/84 100 08/02/19 12:29 36.8 C 77 18 104/63 97 08/02/19 11:41 82 20 107/68 98 08/02/19 09:58 78 20 104/74 100 08/02/19 09:00 78 16 103/70 100 08/02/19 08:30 73 20 104/66 100 08/02/19 07:54 36.5 C 79 18 114/80 100 Laboratory Results Abnormal Lab Results 08/02/19 08/02/19 08/02/19 08:06 08:06 08:06 WBC 12.58 H RBC 4.37 Hgb 12.6 Hct 37.4 MCV 85.6 MCH 28.8 MCHC 33.7 RDW Std Deviation 42.8 RDW Coeff of Mikey 13.7 Plt Count 328 MPV 10.2 Immature Gran % (Auto) 0.2 Neut % (Auto) 67.5 Lymph % (Auto) 17.8 Anderson % (Auto) 13.8 Eos % (Auto) 0.4 Baso % (Auto) 0.3 Immature Gran # (Auto) 0.03 H Neut # (Auto) 8.48 H Lymph # (Auto) 2.24 Anderson # (Auto) 1.74 H Eos # (Auto) 0.05 Baso # (Auto) 0.04 ESR Sodium 137 Potassium 4.1 Chloride 106 Carbon Dioxide 25 Anion Gap 6.0 BUN 8 Creatinine 0.83 Est Cr Clr Drug Dosing 93.4 Est GFR ( Amer) 117.7 Est GFR (Non-Af Amer) 101.5 BUN/Creatinine Ratio 10.1 Glucose 102 H Calcium 8.9 Total Bilirubin 0.1 L AST 29 ALT 20 Alkaline Phosphatase 73 Total Creatine Kinase 237 H CK-MB (CK-2) 20.9 H CK/CKMB % Calc 8.8 H Troponin I 4.710 H* C-Reactive Protein Total Protein 7.8 Albumin 3.3 L Globulin 4.5 H Albumin/Globulin Ratio 0.7 L Lipase 96 HCG, Qual Negative Urine Color Urine Appearance Urine pH Ur Specific Mel[place]ude Urine Protein Urine Glucose (UA) Urine Ketones Urine Blood Urine Nitrite Urine Bilirubin Urine Urobilinogen Ur Leukocyte Esterase Lyme Disease IgG Ab Lyme Disease IgM Ab Monoscreen Negative Influenza Type A (PCR) Influenza Type B (PCR) 08/02/19 08/02/19 08/02/19 08:06 08:06 08:20 WBC RBC Hgb Hct MCV MCH MCHC RDW Std Deviation RDW Coeff of Mikey Plt Count MPV Immature Gran % (Auto) Neut % (Auto) Lymph % (Auto) Anderson % (Auto) Eos % (Auto) Baso % (Auto) Immature Gran # (Auto) Neut # (Auto) Lymph # (Auto) Anderson # (Auto) Eos # (Auto) Baso # (Auto) ESR 46 H Sodium Potassium Chloride Carbon Dioxide Anion Gap BUN Creatinine Est Cr Clr Drug Dosing Est GFR ( Amer) Est GFR (Non-Af Amer) BUN/Creatinine Ratio Glucose Calcium Total Bilirubin AST ALT Alkaline Phosphatase Total Creatine Kinase CK-MB (CK-2) CK/CKMB % Calc Troponin I C-Reactive Protein 10.80 H Total Protein Albumin Globulin Albumin/Globulin Ratio Lipase HCG, Qual Urine Color Urine Appearance Urine pH Ur Specific Melrude Urine Protein Urine Glucose (UA) Urine Ketones Urine Blood Urine Nitrite Urine Bilirubin Urine Urobilinogen Ur Leukocyte Esterase Lyme Disease IgG Ab Lyme Disease IgM Ab Monoscreen Influenza Type A (PCR) Neg for Influ A Influenza Type B (PCR) Neg for Influ B 08/02/19 08/02/19 08/02/19 13:44 13:44 16:50 WBC RBC Hgb Hct MCV MCH MCHC RDW Std Deviation RDW Coeff of Mikey Plt Count MPV Immature Gran % (Auto) Neut % (Auto) Lymph % (Auto) Anderson % (Auto) Eos % (Auto) Baso % (Auto) Immature Gran # (Auto) Neut # (Auto) Lymph # (Auto) Anderson # (Auto) Eos # (Auto) Baso # (Auto) ESR Sodium Potassium Chloride Carbon Dioxide Anion Gap BUN Creatinine Est Cr Clr Drug Dosing Est GFR ( Amer) Est GFR (Non-Af Amer) BUN/Creatinine Ratio Glucose Calcium Total Bilirubin AST ALT Alkaline Phosphatase Total Creatine Kinase CK-MB (CK-2) CK/CKMB % Calc Troponin I 6.640 H* C-Reactive Protein Total Protein Albumin Globulin Albumin/Globulin Ratio Lipase HCG, Qual Urine Color Yellow Urine Appearance Clear Urine pH 8.0 H Ur Specific Melr[place] 1.044 H Urine Protein Negative Urine Glucose (UA) Negative Urine Ketones Negative Urine Blood Negative Urine Nitrite Negative Urine Bilirubin Negative Urine Urobilinogen Negative Ur Leukocyte Esterase Negative Lyme Disease IgG Ab Negative Lyme Disease IgM Ab Negative Monoscreen Influenza Type A (PCR) Influenza Type B (PCR) Diagnostic Findings Echocardiogram demonstrated preserved LV systolic function with regional wall motion abnormalities involving portions of the apex. No significant valvular heart disease. Chest CT did not reveal any evidence acute cardiopulmonary disease. No evidence of pulmonary embolus. There was an isolated calcified nodule estimated 4 millimeters. ECG Additional Comments: EKG was normal PG Care Time/CCT Total # of Minutes Spent Total Time Spent with Patient: Total time spent is greater than 50% in coordination of care (as documented) at patient's floor/unit and/or counseling patient: Coding Level of Care Code 91778 Office/OBS Consult Lvl 4 Diagnoses Myopericarditis I31.9
[2019-08-02] MEDS ORDERED: COLCHICINE 0.6 MG TAB PO STA (17:49)
[2019-08-02] MEDS: METOPROLOL TARTRATE 25 MG TAB PO SCH (20:34)
[2019-08-02] MEDS: PATIENT'S OWN ORAL CONTRACEPTIVE PO SCH (22:22)
[2019-08-03 02:06] LABS: Hematocrit (blood only) 32.8 % (37-47); Hemoglobin 10.8 g/dL (12.0-16.0); Mean Corpuscular Hemoglobin 28.8 pg (25-34); Mean Corpuscular Hgb Conc 32.9 g/dL (32-36); Mean Corpuscular Volume 87.5 fL (80-100); Mean Platelet Volume 9.8 fL (7.4-10.4); Platelet Count 316 K/uL (130-400); RDW Coefficient of Variation 13.7 % (11.5-14.5); RDW Standard Deviation 44.2 fL (36.4-46.3); Red Blood Count 3.75 M/uL (4.2-5.4)
[2019-08-03 02:26] LABS: BUN Creatinine Ratio 10.4 (10-20); Calcium 8.2 mg/dl (8.5-10.1); Creatinine Clr Calc Pharmacy 91.2 ml/min; Est GFR (African American) 114.3; Est GFR (Non-African American) 98.6; Potassium 4.7 mmol/L (3.5-5.1)
[2019-08-03 02:34] LABS: C Reactive Protein 6.46 mg/dl (0-0.29); Troponin I 11.3 ng/ml (0-0.045)
[2019-08-03] MEDS: METOPROLOL TARTRATE 25 MG TAB PO SCH ×2 (08:16→20:25)
[2019-08-03] MEDS: COLCHICINE 0.6 MG TAB PO SCH ×2 (09:38→20:26)
--- NOTE | 2019-08-03 10:35 | Cardiology Progress Note ---
Date of Service August 03, 2019 Assessment & Plan (1) Myopericarditis: Patient's symptoms have resolved. Her biomarkers did trend upwards but are now trending downward. The peak troponin: Size well with the onset of her symptoms. She was started on colchicine, low-dose nonsteroidal medication and low-dose beta-elias. She appears to be tolerating medical therapy well. Hemodynamics appear to be stable. She did have some very brief rhythm disturbance overnight on telemetry. I think the biggest risk is the development of rhythm issues. I would recommend continuing telemetry for at least another 24 hours. Subjective Summary the patient claims feeling well. She has not had any recurrence of her presenting symptoms. No chest pain. No breathing difficulty. No pleuritic symptoms. She has been ambulatory to the bathroom without dyspnea or dizziness. No sense of palpitation. Review of Systems Review of Systems: Per HPI Physical Exam Physical Exam: She is alert and oriented x3. Mood affect appear normal. She answered all questions appropriately. HEENT: Sclerae are anicteric. Pupils are equal and reactive to light and accommodation. Extraocular movements were intact. Neuro: Cranial nerves intact Neck: Examination of the submandibular region did not reveal any significant lymphadenopathy. Carotids are palpable bilaterally and free of bruits on auscultation. There was no evidence of jugular venous distention. The thyroid was not enlarged. Lungs: Lungs are clear to auscultation bilaterally. There are no rales wheezes or rhonchi. She has normal respiratory effort without use of accessory muscles. There is normal pulmonary excursion. Cardiac: The rhythm was regular. S1 and S2 were normal. There are no murmurs on examination. The PMI was not markedly displaced on palpation. Abdomen: The abdomen was soft and nontender. Extremities: Patient has bilateral radial pulses that are equal in intensity. There is no evidence cyanosis or clubbing. There was no evidence of significant peripheral edema bilaterally. Skin: There are no rashes noted on examination today. Results & Data Vital Signs (Past 12 Hours) Vital Signs Temp Pulse Pulse Resp BP Pulse Ox 08/03/19 07:40 36.8 C 73 20 112/70 98 08/03/19 07:29 65 08/03/19 03:36 36.7 C 71 18 110/70 99 08/03/19 00:00 61 08/02/19 23:24 36.8 C 63 18 104/72 98 Laboratory Results Abnormal Lab Results 08/02/19 08/02/19 08/02/19 13:44 13:44 16:50 WBC RBC Hgb Hct MCV MCH MCHC RDW Std Deviation RDW Coeff of Mikey Plt Count MPV ESR Sodium Potassium Chloride Carbon Dioxide Anion Gap BUN Creatinine Est Cr Clr Drug Dosing Est GFR ( Amer) Est GFR (Non-Af Amer) BUN/Creatinine Ratio Glucose Calcium Total Creatine Kinase Troponin I 6.640 H* C-Reactive Protein Urine Color Yellow Urine Appearance Clear Urine pH 8.0 H Ur Specific Lavinia 1.044 H Urine Protein Negative Urine Glucose (UA) Negative Urine Ketones Negative Urine Blood Negative Urine Nitrite Negative Urine Bilirubin Negative Urine Urobilinogen Negative Ur Leukocyte Esterase Negative Lyme Disease IgG Ab Negative Lyme Disease IgM Ab Negative 08/02/19 08/03/19 08/03/19 19:39 01:46 01:46 WBC 9.90 RBC 3.75 L Hgb 10.8 L Hct 32.8 L MCV 87.5 MCH 28.8 MCHC 32.9 RDW Std Deviation 44.2 RDW Coeff of Mikey 13.7 Plt Count 316 MPV 9.8 ESR Sodium 140 Potassium 4.7 Chloride 112 H Carbon Dioxide 26 Anion Gap 2.0 L BUN 9 Creatinine 0.85 Est Cr Clr Drug Dosing 91.2 Est GFR ( Amer) 114.3 Est GFR (Non-Af Amer) 98.6 BUN/Creatinine Ratio 10.4 Glucose 88 Calcium 8.2 L Total Creatine Kinase 546 H Troponin I 12.200 H* 11.300 H* C-Reactive Protein 6.46 H Urine Color Urine Appearance Urine pH Ur Specific Lavinia Urine Protein Urine Glucose (UA) Urine Ketones Urine Blood Urine Nitrite Urine Bilirubin Urine Urobilinogen Ur Leukocyte Esterase Lyme Disease IgG Ab Lyme Disease IgM Ab 08/03/19 01:46 WBC RBC Hgb Hct MCV MCH MCHC RDW Std Deviation RDW Coeff of Mikey Plt Count MPV ESR 42 H Sodium Potassium Chloride Carbon Dioxide Anion Gap BUN Creatinine Est Cr Clr Drug Dosing Est GFR ( Amer) Est GFR (Non-Af Amer) BUN/Creatinine Ratio Glucose Calcium Total Creatine Kinase Troponin I C-Reactive Protein Urine Color Urine Appearance Urine pH Ur Specific Lavinia Urine Protein Urine Glucose (UA) Urine Ketones Urine Blood Urine Nitrite Urine Bilirubin Urine Urobilinogen Ur Leukocyte Esterase Lyme Disease IgG Ab Lyme Disease IgM Ab ECG Additional Comments: Monitor revealed occasional PVCs. One run of wide complex tachycardia lasting a few beats. EKG this morning demonstrated normal sinus rhythm without significant ST or T-wave changes. PG Care Time/CCT Total # of Minutes Spent Total Time Spent with Patient: Total time spent is greater than 50% in coordination of care (as documented) at patient's floor/unit and/or counseling patient: Coding Level of Care Code 45750 Subseq Obs Care Lvl 3 Diagnoses Myopericarditis I31.9
--- NOTE | 2019-08-03 11:49 | XCELERA ---
[id number] \\[id number]
--- NOTE | 2019-08-03 14:31 | Hospitalist Progress Note ---
Date of Service August 03, 2019 Assessment & Plan (1) Chest pain: - Likely related to myopericarditis (see below) - CXR negative; CT PE was negative. - Trop peaked at 12.2, now trending down. - Continue to monitor on telemetry, did have 9 beat run of V. tach overnight. - Toradol 30 mg IV q6hr prn; also started Colchicine 0.6 mg BID and Metoprolol tartrate 12.5 mg BID. (2) Myocarditis: - Presumed myopericarditis in setting of recent viral illness at home. - CRP and ESR mildly improved on repeat labs. - Lyme titer negative; Anaplasmosis pending. - U/a negative; blood cultures negative (prelim) - Rapid strep & monospot negative. EBV titer suggests previous infection. - Chest pain work up as noted above. - Consulted cardiology, appreciate input. Will monitor on telemetry over next 24 hours. - Colchicine 0.6 mg BID & Metoprolol 12.5 mg BID. (3) Elevated troponin: - Trop level peaked at 12, now trending down. (4) Abnormal echocardiogram: - Echo with regional wall motion abnormalities. No evidence of PFO. - On Metoprolol 12.5 mg BID. - Cardiology following, appreciate input. (5) Elevated CK: - CK level elevated; received IV fluid hydration. (6) Leukocytosis: - In setting of presumed recent viral illness. - Monitor CBC daily. (7) Pulmonary nodule: - CT chest with 4 mm RUL nodule. - Recommend f/u chest CT in 1 year. (8) Uses control: - Continue home med as prescribed. (9) DVT prophylaxis: - SCDs; encourage ambulation. Dispo: Med/surg with tele; discharge likely on pending office worker over next 24 hours. Subjective Pt. is doing well -- chest pain is now resolved. Last episode was after arrival to the floor yesterday afternoon. Denies SOB, N/V. Plan to monitor over next 24 hours on monitor per cardiology. Review of Systems Review of Systems: All systems reviewed & are unremarkable except as noted in HPI & below Constitutional: no fever, no chills, no fatigue, no weakness and no anorexia Respiratory: no cough, no dyspnea, no dyspnea on exertion and no wheezing Cardiovascular: no chest pain, no radiating jaw, neck or arm pain, no palpitations and no edema Gastrointestinal: no abdominal pain, no nausea, no vomiting and no constipation Genitourinary: no difficulty urinating Musculoskeletal: no back pain and no joint pain Integumentary: no non-healing lesions Physical Exam Physical Exam: General: Resting comfortably HEENT: NC/AT; PERRLA with EOMI; [place] conjunctiva, MMM. No erythema of posterior pharynx Neck: Supple and nontender Cardiac: RRR Lungs: CTA bilaterally Abdomen: Bowel normoactive X 4; Nontender to palpation Extremities: Warm. No edema present Neuro: No focal weakness Skin: No rash Results & Data Vital Signs (Past 12 Hours) Vital Signs Temp Pulse Pulse Resp BP Pulse Ox 08/03/19 12:34 36.7 C 53 L 18 123/80 99 08/03/19 07:40 36.8 C 73 20 112/70 98 08/03/19 07:29 65 08/03/19 03:36 36.7 C 71 18 110/70 99 Laboratory Results 08/03/19 08/03/19 08/03/19 Range/Units 01:46 01:46 01:46 WBC 9.90 (4.8-10.8) K/uL RBC 3.75 L (4.2-5.4) M/uL Hgb 10.8 L (12.0-16.0) g/dL Hct 32.8 L (37-47) % MCV 87.5 (80-100) fL MCH 28.8 (25-34) pg MCHC 32.9 (32-36) g/dL RDW Std Deviation 44.2 (36.4-46.3) fL RDW Coeff of Mikey 13.7 (11.5-14.5) % Plt Count 316 (130-400) K/uL MPV 9.8 (7.4-10.4) fL ESR 42 H (0-21) mm/hr Sodium 140 (136-145) mmol/L Potassium 4.7 (3.5-5.1) mmol/L Chloride 112 H (98-107) mmol/L Carbon Dioxide 26 (21-32) mmol/L Anion Gap 2.0 L (3-11) BUN 9 (7-18) mg/dl Creatinine 0.85 (0.6-1.2) mg/dl Est Cr Clr Drug Dosing 91.2 ml/min Est GFR ( Amer) 114.3 Est GFR (Non-Af Amer) 98.6 BUN/Creatinine Ratio 10.4 (10-20) Glucose 88 (70-99) mg/dl Calcium 8.2 L (8.5-10.1) mg/dl Total Creatine Kinase 546 H (26-192) U/L Troponin I 11.300 H* (0-0.045) ng/ml C-Reactive Protein 6.46 H (0-0.29) mg/dl Urine Color Urine Appearance (Clear) Urine pH (4.5-7.5) Ur Specific Warren (1.000-1.030) Urine Protein (Negative) Urine Glucose (UA) (Negative) Urine Ketones (Negative) Urine Blood (Negative) Urine Nitrite (Negative) Urine Bilirubin (Negative) Urine Urobilinogen (Negative) Ur Leukocyte Esterase (Negative) Lyme Disease IgG Ab (Negative) Lyme Disease IgM Ab (Negative) EBV Capsid Ag IgG Ab U/mL EBV Capsid Ag IgM Ab U/mL EBV EA Restrict+Diffuse U/mL EBV Nuclear Antigen Ab U/mL EBV Antibody Interp 08/02/19 08/02/19 08/02/19 Range/Units 19:39 16:50 13:44 WBC (4.8-10.8) K/uL RBC (4.2-5.4) M/uL Hgb (12.0-16.0) g/dL Hct (37-47) % MCV (80-100) fL MCH (25-34) pg MCHC (32-36) g/dL RDW Std Deviation (36.4-46.3) fL RDW Coeff of Mikey (11.5-14.5) % Plt Count (130-400) K/uL MPV (7.4-10.4) fL ESR (0-21) mm/hr Sodium (136-145) mmol/L Potassium (3.5-5.1) mmol/L Chloride (98-107) mmol/L Carbon Dioxide (21-32) mmol/L Anion Gap (3-11) BUN (7-18) mg/dl Creatinine (0.6-1.2) mg/dl Est Cr Clr Drug Dosing ml/min Est GFR ( Amer) Est GFR (Non-Af Amer) BUN/Creatinine Ratio (10-20) Glucose (70-99) mg/dl Calcium (8.5-10.1) mg/dl Total Creatine Kinase (26-192) U/L Troponin I 12.200 H* (0-0.045) ng/ml C-Reactive Protein (0-0.29) mg/dl Urine Color Yellow Urine Appearance Clear (Clear) Urine pH 8.0 H (4.5-7.5) Ur Specific Warren 1.044 H (1.000-1.030) Urine Protein Negative (Negative) Urine Glucose (UA) Negative (Negative) Urine Ketones Negative (Negative) Urine Blood Negative (Negative) Urine Nitrite Negative (Negative) Urine Bilirubin Negative (Negative) Urine Urobilinogen Negative (Negative) Ur Leukocyte Esterase Negative (Negative) Lyme Disease IgG Ab Negative (Negative) Lyme Disease IgM Ab Negative (Negative) EBV Capsid Ag IgG Ab U/mL EBV Capsid Ag IgM Ab U/mL EBV EA Restrict+Diffuse U/mL EBV Nuclear Antigen Ab U/mL EBV Antibody Interp 08/02/19 08/02/19 Range/Units 13:44 08:06 WBC (4.8-10.8) K/uL RBC (4.2-5.4) M/uL Hgb (12.0-16.0) g/dL Hct (37-47) % MCV (80-100) fL MCH (25-34) pg MCHC (32-36) g/dL RDW Std Deviation (36.4-46.3) fL RDW Coeff of Mikey (11.5-14.5) % Plt Count (130-400) K/uL MPV (7.4-10.4) fL ESR (0-21) mm/hr Sodium (136-145) mmol/L Potassium (3.5-5.1) mmol/L Chloride (98-107) mmol/L Carbon Dioxide (21-32) mmol/L Anion Gap (3-11) BUN (7-18) mg/dl Creatinine (0.6-1.2) mg/dl Est Cr Clr Drug Dosing ml/min Est GFR ( Amer) Est GFR (Non-Af Amer) BUN/Creatinine Ratio (-20) Glucose (70-99) mg/dl Calcium (8.5-10.1) mg/dl Total Creatine Kinase (26-192) U/L Troponin I 6.640 H* (0-0.045) ng/ml C-Reactive Protein (0-0.29) mg/dl Urine Color Urine Appearance (Clear) Urine pH (4.5-7.5) Ur Specific Warren (1.000-1.030) Urine Protein (Negative) Urine Glucose (UA) (Negative) Urine Ketones (Negative) Urine Blood (Negative) Urine Nitrite (Negative) Urine Bilirubin (Negative) Urine Urobilinogen (Negative) Ur Leukocyte Esterase (Negative) Lyme Disease IgG Ab (Negative) Lyme Disease IgM Ab (Negative) EBV Capsid Ag IgG Ab 401.00 H U/mL EBV Capsid Ag IgM Ab <36.00 U/mL EBV EA Restrict+Diffuse 17.30 H U/mL EBV Nuclear Antigen Ab 540.00 H U/mL EBV Antibody Interp SEE NOTE PG Care Time/CCT Total # of Minutes Spent Total Time Spent with Patient: Total time spent is greater than 50% in coordination of care (as documented) at patient's floor/unit and/or counseling patient: Coding Level of Care Code 03059 Subseq Hosp Care Lvl 3 Diagnoses Chest pain R07.9 Myocarditis I51.4 Elevated troponin R79.89 Abnormal echocardiogram R93.1 Elevated CK R74.8 Leukocytosis D72.829 Pulmonary nodule R91.1 Uses control Z78.9 DVT prophylaxis Z29.9
--- NOTE | 2019-08-03 17:30 | Electrocardiogram Report ---
Test Reason : Blood Pressure : / mmHG Vent. Rate : 074 BPM Atrial Rate : 074 BPM P-R Int : 148 ms QRS Dur : 068 ms QT Int : 366 ms P-R-T Axes : 040 058 032 degrees QTc Int : 406 ms Normal sinus rhythm with sinus arrhythmia Low voltage QRS Borderline ECG No previous ECGs available Confirmed by Fritz Bee ([id number]) on 08/03/2019 5:30:34 PM Referred By: REFERRED SELF Confirmed By:Rafael Bee
--- NOTE | 2019-08-03 17:51 | Electrocardiogram Report ---
Test Reason : Blood Pressure : / mmHG Vent. Rate : 076 BPM Atrial Rate : 076 BPM P-R Int : 148 ms QRS Dur : 068 ms QT Int : 362 ms P-R-T Axes : 048 046 045 degrees QTc Int : 407 ms Normal sinus rhythm with sinus arrhythmia Nonspecific ST and T wave abnormality Abnormal ECG When compared with ECG of 02-AUG-2019 08:14, (unconfirmed) Nonspecific T wave abnormality, worse in Inferior leads Nonspecific T wave abnormality now evident in Lateral leads Confirmed by Fritz Bee ([id number] on 08/03/2019 5:50:41 PM Referred By: REFERRED SELF Confirmed By:Rafael Bee
[2019-08-03] MEDS: PATIENT'S OWN ORAL CONTRACEPTIVE PO SCH (20:25)
[2019-08-04] MEDS: COLCHICINE 0.6 MG TAB PO SCH (08:40)
[2019-08-04] MEDS: METOPROLOL TARTRATE 25 MG TAB PO SCH (08:40)
--- NOTE | 2019-08-04 13:31 | Discharge Summary ---
Date of Service August 04, 2019 Admission HPI Per Admitting Provider Ms. Lozano is a 19 year old female with no significant past medical history who presented with chest pain. Pt. developed generalized achiness, headaches and neck soreness starting last Thursday. She also had fevers at home but did not record temperature. She woke up with sternal chest pressure/pain this morning. Pain was constant and radiated to both arms. No improvement in pain with positional changes. Had associated nausea, denies vomiting, shortness of breath, abdominal pain, nasal congestion, pharyngitis, sinus pressure. She received Toradol 30 mg IV in the ER with improvement in chest pain. Denies recent ill contacts with known viral illnesses. ER course: Troponin level was elevated at 4.710. EKG was negative for acute changes. Leukocytosis, mildly elevated CK level, CRP of 10.8 and ESR 46 noted on labs. CXR negative. She received IV fluids and Toradol. Will admit for evaluation of myocarditis. Admission Exam Per Admitting Provider General: Resting comfortably, 2 brothers present at bedside. HEENT: NC/AT; PERRLA with EOMI; [place] conjunctiva, MMM. No erythema of posterior pharynx Neck: Supple and nontender Cardiac: RRR w/o murmurs, gallops or rubs Lungs: CTA bilaterally; No rhonchi, wheezing, or rales Abdomen: Bowel normoactive X 4; Nontender to palpation Rectal: Deferred : Deferred Extremities: Warm. No edema present Neuro: No focal weakness Skin: No rash Principal Diagnosis Myopericarditis Discharge Exam General: Resting comfortably HEENT: NC/AT; PERRLA with EOMI; [place] conjunctiva, MMM. No erythema of posterior pharynx Neck: Supple and nontender Cardiac: RRR Lungs: CTA bilaterally Abdomen: Bowel normoactive X 4; Nontender to palpation Extremities: Warm. No edema present Neuro: No focal weakness Skin: No rash Discharge Data Allergies Allergy/AdvReac Type Severity Reaction Status Date / Time No Known Allergies Allergy Unverified 08/02/19 08:43 Consultations 08/02/19 09:16 Consult Cardiology Stat 08/02/19 09:21 ED Decision to Admit Stat Ordered Studies 08/02/19 09:18 CT angio chest PE protocol Stat Hospital Course (1) Chest pain: Likely related to myopericarditis (see below) CXR negative; CT PE was negative. Trop peaked at 12.2, trended down. Monitor on telemetry, SR over last 24 hours. Colchicine 0.6 mg BID and Metoprolol tartrate 12.5 mg BID. Transitioned to colchicine 0.6 mg daily and Toprol XL 25 mg daily at discharge. (2) Myocarditis: Presumed myopericarditis in setting of recent viral illness at home. CRP and ESR elevated. Lyme titer negative; Anaplasmosis pending. U/a negative; blood cultures negative (prelim) Rapid strep & monospot negative. EBV titer suggests previous infection. Consulted cardiology, appreciate input. On Colchicine and Metoprolol. (3) Elevated troponin: Trop level peaked at 12, trended down. (4) Abnormal echocardiogram: Echo with regional wall motion abnormalities. No evidence of PFO. On Metoprolol 12.5 mg BID. Transition to Toprol XL 25 mg daily at discharge. Cardiology following, appreciate input. (5) Elevated CK: CK level elevated; received IV fluid hydration. (6) Leukocytosis: In setting of presumed recent viral illness. (7) Pulmonary nodule: CT chest with 4 mm RUL nodule. Recommend f/u chest CT in 1 year. (8) Uses control: Continued home med as prescribed. (9) DVT prophylaxis: SCDs; encouraged ambulation. Discharged to home on 08/04/19. Total Time Total Time Spent Total Time Spent (In Minutes): >30 minutes Total Time Includes: Examination of the Patient, Discharge Planning, Medication Reconciliation, Communication With Other Providers and Other Discharge Plan Discharge Items Patient Disposition: Home - Self-Care Reason For Visit: CHEST PAIN Discharge Diagnosis: Pericarditis Condition on Discharge: Fair Goals: You have been hospitalized for an acute medical problem. During your stay at [facility], we have made an effort to correct the problem that brought you to the hospital while keeping you as comfortable as possible. Medications were used to bring your condition under control and your discharge instructions will include directions for any medications you should take after leaving the hospital. Please make sure you see your Primary Care Provider as part of your follow up plan. Activity: As commented below Exercise/Sports: None Non-emergency contact: Primary Care Provider and Field Marketing Representative Call non-emergency contact if: you have any medication questions, your symptoms worsen, your pain is not controlled, your pain is worsening, your pain is unusual for you, your pain is concerning for you and you have a fever Follow-up/Referrals: Mulu Nicholson MD [Primary Care Provider] - 08/09/19 9:00 am (Please, follow up with Dr. Mulu Nicholson on ThursdayAugust 09 at 9:00 am. *If you need to change this appointment, call the office at [phone].) Seda Saldana PA-C [Physician Information Technology Internship] - 08/31/19 11:00 am (Please, follow up at [facility] Cardiology Office with Seda Saldana PA-C on ThursdayAugust 31 at 11:00 am. *The office is located in [address] of [facility], next to this hospital. If you need to change this appointment, call the office at [phone].) Diet: Regular Addtl Attending Provider Instructions: 1. Pericarditis * Please take Colchicine 0.6 mg daily and Metoprolol XL 25 mg daily as prescribed. * You will need to follow activity restrictions at home -- including limitation on exercising. * No exertional activity until cleared by cardiology * Please follow up with primary care provider in 1-2 weeks. * An appointment will also be scheduled with cardiology for outpatient evaluation. Pending Studies at Discharge: Yes Studies:: Blood cultures negative (prelim) Stand-Alone Forms: [facility], Work/School Release (Inpt) Medications and DC Order Prescriptions: New acetaminophen [Mapap (acetaminophen)] 325 mg Tablet 650 mg PO Q6H PRN (Reason: pain) 1 Days Qty: 1 RF: 0 metoprolol succinate 25 mg capsule,sprinkle,ER 24hr 25 mg PO DAILY Qty: 30 RF: 2 colchicine 0.6 mg capsule 0.6 mg PO DAILY Qty: 30 RF: 2 Continued norethindrone-e.estradiol-iron [Travon Fe 1.5 (28)] 1.5 mg-30 mcg (21)/75 mg (7) tablet 1 tab PO HS RF: 0 Discontinued ibuprofen [Advil] 200 mg Tablet 200 mg PO Q6H PRN (Reason: pain/fever) RF: 0 Discharge Orders: Discharge Order (Routine); Ordered 08/04/19 Ordered By: Monika Lawson Admission Data Admit Date/Time: 08/03/19 14:07 Attending Provider: Cristofer Peterson Admit Provider: Cristofer Peterson Primary Care Provider: Mulu Nicholson Other Providers: Edin Bee ; Cristofer Peterson Other Interventions: Discharge Summary Assessment (RN) Last Done: 08/04/19 09:58 DC Date/Time DO NOT enter until pt leaves facility: 08/04/19 10:38 Coding Level of Care Code D/C Day Management >30 mins Diagnoses Chest pain R07.9 Chest pain type: unspecified Myocarditis I51.4 Elevated troponin R79.89 Abnormal echocardiogram R93.1 Elevated CK R74.8 Leukocytosis D72.829 Pulmonary nodule R91.1 Uses control Z78.9 DVT prophylaxis Z29.9
--- NOTE | 2019-08-04 17:27 | Electrocardiogram Report ---
Test Reason : Blood Pressure : / mmHG Vent. Rate : 055 BPM Atrial Rate : 055 BPM P-R Int : 154 ms QRS Dur : 066 ms QT Int : 436 ms P-R-T Axes : 052 066 230 degrees QTc Int : 417 ms Sinus bradycardia with sinus arrhythmia T wave abnormality, consider inferior ischemia T wave abnormality, consider anterolateral ischemia Abnormal ECG When compared with ECG of 03-AUG-2019 07:02, Inverted T waves have replaced nonspecific T wave abnormality in Inferior leads T wave inversion now evident in Lateral leads Confirmed by Fritz Bee ([id number]) on 08/04/2019 5:26:44 PM Referred By: REFERRED SELF Confirmed By:Rafael Bee
== END 2019-08-04 10:38 | disposition home or self-care (01) | DRG 316 ==
LOC: ED 07:51 → 2N 07:51